=== PATIENT | female | born 1940 | race Caucasian/White ===

== ENCOUNTER 2025-01-27 12:14 | Emergency (ER) | payer OTHER, MEDICARE ==
[~2025-01-27] VITALS: Ht 160 cm; Wt 59.0 kg
[~2025-01-27 12:14] MED LIST: ASPI325EC; ASPI81EC PO; BENAML20/5; DRON400T; ELIQUIS5 MG; HYDACE5 PO; HYDCHL25; IBUP600 PO; IRBE150; IRBHYD150 PO; METO25ER; VERA180ER PO; [UNRECOGNIZED DRUG - REMARK]
[2025-01-27 12:17] VITALS: BP 129/86
[2025-01-27] MEDS ORDERED: Tranexamic Acid 1000 MG/10 ML 10ML Vial (SDV) ONE (13:19)
[2025-01-27] MEDS ORDERED: Tranexamic Acid 1000 MG/10 ML 10ML Vial (SDV) TOP ONE (13:20)
[2025-01-27] MEDS ORDERED: Tranexamic Acid 100 ML IV ONE (15:45)
[2025-01-27] MEDS ORDERED: OXAYDO5 M2 PO (16:22)
== END 2025-01-27 16:57 | disposition home or self-care (01) ==
LOC: ER 12:14
DX: S42.031A Displaced fracture of lateral end of right clavicle, initial encounter for closed fracture (principal); S01.01XA Laceration without foreign body of scalp, initial encounter; I48.91 Unspecified atrial fibrillation; Z23 Encounter for immunization; Z79.82 Long term (current) use of aspirin; Z79.01 Long term (current) use of anticoagulants; Z79.899 Other long term (current) drug therapy; W01.198A Fall on same level from slipping, tripping and stumbling with subsequent striking against other object, initial encounter; Y93.H2 Activity, gardening and landscaping
CPT/HCPCS: 12031; 29105; 70450; 71045; 72125; 73030; 90471; 90715; 96374-59; 99284-25